=== PATIENT | female | born 1985 | race African-American/Black ===

== ENCOUNTER 2025-01-30 22:58 | Emergency (ER) | payer OTHER, MEDICAID ==
[~2025-01-30] VITALS: Ht 157.5 cm; Wt 82.0 kg
[2025-01-30 23:09] VITALS: O2SAT 99
[2025-01-30] MEDS: LIDOCAINE 5% PATCH TOP ONE (23:58)
[2025-01-31 00:04] LABS: BASOPHILS % 0.5 % (0.0-2.0); EOSINOPHILS % 1.4 % (0.0-5.0); HEMATOCRIT. 41.8 % (36.0-48.0); HEMOGLOBIN. 14.3 g/dL (12.0-16.0); LYMPHOCYTES % 31.2 % (20.0-50.0); MEAN PLATELET VOLUME 7.8 fl (7.4-10.4); MONOCYTES % 8.2 % (2.0-8.0); NEUTROPHILS % 58.7 % (40.0-76.0); PLATELET 287 x1000/uL (130-400); RED BLOOD CELL COUNT 4.77 mill/uL (4.2-5.4); RED CELL DISTRIBUTION WIDTH 13.6 % (11.6-14.6)
[2025-01-31 00:19] LABS: CREATININE 0.7 mg/dL (0.6-1.0)
[2025-01-31 00:20] LABS: TROPONIN I HIGH SENSITIVITY < 4 ng/L (3.0-34)
[2025-01-31 00:21] LABS: UREA NITROGEN BLOOD 9 mg/dL (9-23)
[2025-01-31] MEDS ORDERED: LIDO700A30 TP (01:27)
[2025-01-31 01:30] VITALS: BP 117/68; PULSE 79; RESP 14; TEMP 36.8; O2SAT 99
[2025-01-31 02:59] LABS: HCG SCREEN NEGATIVE
== END 2025-01-31 01:45 | disposition home or self-care (01) ==
LOC: ER 22:58
DX: S29.9XXA Unspecified injury of thorax, initial encounter (principal); R07.89 Other chest pain; R06.02 Shortness of breath; Z88.1 Allergy status to other antibiotic agents; V89.2XXA Person injured in unspecified motor-vehicle accident, traffic, initial encounter; Y92.410 Unspecified street and highway as the place of occurrence of the external cause; Y93.89 Activity, other specified; Y99.8 Other external cause status
CPT/HCPCS: 36415; 71045; 80048; 83880; 84484; 84703; 85025; 93005; 99285